=== PATIENT | male | born 1960 | race Caucasian/White ===

== ENCOUNTER 2025-02-08 08:29 | Emergency (ER) | payer OTHER ==
[~2025-02-08] VITALS: Ht 172.7 cm; Wt 86.0 kg
[2025-02-08 08:37] VITALS: TEMP 36.7; O2SAT 97
[2025-02-08] MEDS ORDERED: LIDOCAINE HCL/EPINEPHRINE 1%-EPI 1:100,000 10ML VIAL INFIL ONE (09:15)
[2025-02-08] MEDS ORDERED: TETANUS, DIPHTHERIA, PERTUSSIS VAC/PF 0.5ML (>10YR OLD) IM ONE (09:15)
[2025-02-08] MEDS: LIDOCAINE HCL/EPINEPHRINE 1%-EPI 1:100,000 10ML VIAL INFIL ONE (09:59)
[2025-02-08] MEDS ORDERED: BO1 TP (10:37)
[2025-02-08 11:08] VITALS: BP 174/87; PULSE 78; RESP 18; O2SAT 100
== END 2025-02-08 11:10 | disposition home or self-care (01) ==
LOC: EDBD 08:29 → ER 08:29
DX: S01.112A Laceration without foreign body of left eyelid and periocular area, initial encounter (principal); Z79.899 Other long term (current) drug therapy; W01.0XXA Fall on same level from slipping, tripping and stumbling without subsequent striking against object, initial encounter; Y93.89 Activity, other specified; Y92.89 Other specified places as the place of occurrence of the external cause; Y99.8 Other external cause status
CPT/HCPCS: 12013; 99282

== ENCOUNTER 2025-02-15 11:55 | Emergency (ER) | payer OTHER ==
[~2025-02-15] VITALS: Ht 177.8 cm; Wt 87.0 kg
[~2025-02-15 11:55] MED LIST: BO1 TP
[2025-02-15 12:09] VITALS: O2SAT 100
[2025-02-15 13:12] VITALS: BP 138/68; PULSE 58; RESP 18; TEMP 36.7; O2SAT 100
== END 2025-02-15 13:13 | disposition home or self-care (01) ==
LOC: ER 11:55
DX: S01.112D Laceration without foreign body of left eyelid and periocular area, subsequent encounter (principal); X58.XXXD Exposure to other specified factors, subsequent encounter
CPT/HCPCS: 99281; 99282